=== PATIENT | male | born 1980 | race Caucasian/White ===

== ENCOUNTER 2020-08-12 19:09 | Emergency (ER) | payer BC ==
[2020-08-12] MEDS ORDERED: Sodium Chloride 0.9% 2.5 ML Syringe FLUSH PRN (19:29)
[2020-08-12] MEDS ORDERED: LORazepam 2 MG/ML SDV IVPUSH ONE (19:29)
[2020-08-12] MEDS ORDERED: Sodium Chloride 0.9% 1,000 ML IV ONE (19:29)
[2020-08-12] MEDS ORDERED: Sodium Chloride 0.9% 10 ML Syringe FLUSH PRN (19:29)
[2020-08-12 20:35] LABS: ACETAMINOPHEN 74.6 ug/mL; BLOOD UREA NITROGEN,BUN 9 mg/dL (7.0-18.0); CARBON DIOXIDE,CO2 26.1 mmol/L (21.0-32.0); CHLORIDE,CL 102 mmol/L (98-107); GLUCOSE RANDOM 114 mg/dL (74-106); POTASSIUM,K 3.2 mmol/L (3.5-5.1); SODIUM,NA 142 mmol/L (136-148)
--- NOTE | 2020-08-12 23:33 | EDM.PDOC ---
ED HPI GENERAL MEDICAL PROBLEM - General Chief Complaint: General Stated Complaint: NOT SLEEPING WELL, POSSIBLE MEDICATION REACTION Time Seen by Provider: 08/12/20 19:28 - History of Present Illness INITIAL COMMENTS - FREE TEXT/NARRATIVE: HISTORY AND PHYSICAL: History of present illness: Is a 40-year-old gentleman who presents ER today secondary to not feeling well and feeling jittery after taking a significant number of Tylenol PM tablets throughout the course of the evening to help him get some sleep. Patient reports that yesterday he was having a hard time sleeping so today he did not going to work. Patient reports that he went out to [employer] and bought Tylenol PM with 500 mg of acetaminophen and 25 mg of diphenhydramine. Patient reports that he went out and bought the tablets approximately 1 PM and took approxi mately 12 tablets between 1 PM and 6 PM. Patient reports that he took 8 of those tablets between 4 PM and 6 PM to help him get some sleep. This makes a total of 6 g of acetaminophen within a 5-hour period as well as 4 g of acetaminophen between 4 PM to 6 PM. Patient denies any recent fevers, shakes, chills, nausea, vomiting, diarrhea, dysuria, frequency, urgency, chest pain, shortness of breath. Patient denies any suicidal or homicidal ideation. Patient reports that he is been in an extremely good mood and has noted reason to harm himself. 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 Patient reports that he was taking extra doses because that is how much she used to take when he was younger. Patient adamantly denies any stressors in his life out of the ordinary other than being superintendent men[employer]. Patient reports that this is not unusual for him. Patient denies any relationship or social stressors, work stressors, or other stressors that have caused him to be depressed. Patient and we denies any SI or SI attempt. He reports that he did not go to work today because the was unable to fall asleep yesterday evening and was too tired so he stayed home. He reports that he got the Haldol with Benadryl to help him sleep tonight but was unable to and therefore took extra pills. Patient reports he was unaware of the possibility of overdose with acetaminophen causing liver disease and Benadryl causing cardiac arrhythmias. Review of systems: As per history of present illness and below otherwise all systems reviewed and negative. Past medical history: As per history of present illness and as reviewed below otherwise noncontributory. Surgical history: As per history of present illness and as reviewed below otherwise noncontributory. Social history: No reported history of drug or alcohol abuse. Family history: As per history of present illness and as reviewed below otherwise noncontributory. Physical exam: Constitutional: Patient is oriented to person, place, and time. Appears well- developed and well-nourished. No distress. HEENT: Moist mucous membranes Head: Normocephalic and atraumatic Eyes: Right eye exhibits no discharge. Left eye exhibits no discharge. No scleral icterus Neck: Normal range of motion. No tracheal deviation present. Cardiovascular: Normal rate and regular rhythm. Pulmonary: Effort normal, no respiratory distress. Abdominal: No distention Musculoskeletal: Normal range of motion Neurologic: Alert and oriented to person, place and time. Skin: [place], warm and dry. Psychiatric: Normal mood and affect. Behavior is normal. Judgment and thought content normal. Nursing note and vital signs have been reviewed Patient is alert awake and oriented x3. Patient is in good spirits, makes normal conversation and appropriate jokes. Patient does not appear to be depressed and does not have a flat affect. Assessment and plan: This is a 40-year-old gentleman who presents ER today secondary to not feeling well after taking 8 tablets of Tylenol PM between 6 4 PM and 6 PM this evening to help him sleep. Patient is clinically and hemodynamically stable. Patient's acetaminophen level at the remark is well below the [place] line for treatment. Patient had a repeat level at 4 hours after arrival and his a semen level at that point is also well below the treatment line. Patient reports that he initiated his doses of pills at approximately 1 PM to try to help him get some sleep this afternoon. Upon arrival the patient would have been 6 to 7 rosa rs out from initial ingestion. Patient's urine drug screen is positive for methadone. Patient adamantly denies usage of methadone or the possibility of accidental ingestion of methadone. Upon review of the literature, it has been shown that false positive tests to result with excessive dose of Benadryl. Patient's methadone is likely positive secondary to false positive result secondary to Benadryl use. At this time, the patient is not presenting with any signs or symptoms of be concerning for diphenhydramine/anticholinergic syndrome. Patient was monitored in ER for close to 4 hours. Patient at this time is stable for discharge to home with instructions to not utilize drugs inappropriately outside there label and that he may utilize Benadryl on its own to help him get some sleep at night. Reassessment at the time of disposition demonstrates that the patient is in no acute distress. The patient has remained stable throughout the entire ED visit and is without objective evidence for acute process requiring urgent intervention or hospitalization. The patient is stable for discharge, counseling is provided as documented above, discussed symptomatic treatment and specific conditions for return. I have spoken with the patient/caregiver and discussed todays findings, in addition to providing specific details for the plan of care. Questions are answered and there is agreement with the plan. Definitive disposition and diagnosis as appropriate pending reevaluation and review of above. R lower quadrant Pain Score (Numeric/FACES): 3 - Related Data Allergies Allergy/AdvReac Type Severity Reaction Status Date / Time No Known Allergies Allergy Verified 08/12/20 19:17 Home Meds: Home Meds Multivitamin [Multivitamins] 1 tab PO DAILY 08/12/20 [History] Vitamin B Complex 1 tab PO DAILY 08/12/20 [History] Past Medical History Cardiovascular History: Reports: Hypertension Other Gastrointestinal History: gastric bypass, abdominal hernia - Infectious Disease History Infectious Disease History: Reports: Chicken Pox Social & Family History - Family History Family Medical History: No Pertinent Family History - Caffeine Use Caffeine Use: Reports: None - Recreational Drug Use Recreational Drug Use: No ED ROS GENERAL - Review of Systems Review Of Systems: See Below ED EXAM, GENERAL - Physical Exam Exam: See Below #1 Interpretation EKG Interpretation Comments: EKG: As interpreted by ER physician: Emanuel: Nonspecific ST-T wave abnormalities Normal axis No evidence of ST elevation ND Normal sinus rhythm heart rate of 85 Course - Vital Signs Last Recorded V/S: Last Vital Signs Temp 97.2 F 08/12/20 23:41 Pulse 62 08/12/20 23:41 Resp 18 08/12/20 23:41 BP 139/98 H 08/12/20 23:41 Pulse Ox 97 08/12/20 23:41 - Orders/Labs/Meds Orders: Active Orders 24 hr Category Date Time Status Saline Lock Insert [OM.PC] Stat Oth 08/12/20 19:29 Ordered Labs: Laboratory Tests 08/12/20 08/12/20 08/12/20 Range/Units 19:42 19:42 19:42 WBC 7.35 (4.0-11.0) K/uL RBC 5.37 (4.50-5.90) M/uL Hgb 16.4 (13.0-17.0) g/dL Hct 47.6 (38.0-50.0) % MCV 88.6 (80.0-98.0) fL MCH 30.5 (27.0-32.0) pg MCHC 34.5 (31.0-37.0) g/dL RDW Std Deviation 42.2 (28.0-62.0) fl RDW Coeff of Jeovany 13 (11.0-15.0) % Plt Count 169 (150-400) K/uL MPV 10.00 (7.40-12.00) fL Neut % (Auto) 53.4 (48.0-80.0) % Lymph % (Auto) 36.6 (16.0-40.0) % [place] % (Auto) 8.4 (0.0-15.0) % Eos % (Auto) 1.5 (0.0-7.0) % Baso % (Auto) 0.1 (0.0-1.5) % Neut # (Auto) 3.9 (1.4-5.7) K/uL Lymph # (Auto) 2.7 H (0.6-2.4) K/uL [place] # (Auto) 0.6 (0.0-0.8) K/uL Eos # (Auto) 0.1 (0.0-0.7) K/uL Baso # (Auto) 0.0 (0.0-0.1) K/uL Nucleated RBC % 0.0 /100WBC Nucleated RBCs # 0 K/uL INR 1.05 Sodium 142 (136-148) mmol/L Potassium 3.2 L (3.5-5.1) mmol/L Chloride 102 (98-107) mmol/L Carbon Dioxide 26.1 (21.0-32.0) mmol/L BUN 9 (7.0-18.0) mg/dL Creatinine 0.9 (0.8-1.3) mg/dL Est Cr Clr Drug Dosing 120.84 mL/min Estimated GFR (MDRD) > 60.0 ml/min Glucose 114 H (74-106) mg/dL Calcium 9.1 (8.5-10.1) mg/dL Total Bilirubin 1.7 H (0.2-1.0) mg/dL AST 16 (15-37) IU/L ALT 20 (14-63) IU/L Alkaline Phosphatase 78 (46-116) U/L Troponin I < 0.050 (0.000-0.056) ng/mL Total Protein 7.4 (6.4-8.2) g/dL Albumin 4.4 (3.4-5.0) g/dL Globulin 3.0 (2.6-4.0) g/dL Albumin/Globulin Ratio 1.5 (0.9-1.6) TSH 3rd Generation 2.59 (0.36-3.74) uIU/mL Urine Color Urine Appearance Urine pH (5.0-8.0) Ur Specific [place] (1.001-1.035) Urine Protein (NEGATIVE) mg/dL Urine Glucose (UA) (NEGATIVE) mg/dL Urine Ketones (NEGATIVE) mg/dL Urine Occult Blood (NEGATIVE) Urine Nitrite (NEGATIVE) Urine Bilirubin (NEGATIVE) Urine Urobilinogen (<2.0) EU/dL Ur Leukocyte Esterase (NEGATIVE) Urine RBC (0-2/HPF) Urine WBC (0-5/HPF) Ur Epithelial Cells (NONE-FEW) Urine Bacteria (NEGATIVE) Salicylates <0.2 (0-20) mg/dL Urine Opiates Screen (NEGATIVE) Ur Oxycodone Screen (NEGATIVE) Urine Methadone Screen (NEGATIVE) Acetaminophen 74.6 ug/mL Ur Barbiturates Screen (NEGATIVE) Ur Phencyclidine Scrn (NEGATIVE) Ur Amphetamine Screen (NEGATIVE) U Methamphetamines Scrn (NEGATIVE) U Benzodiazepines Scrn (NEGATIVE) U Cocaine Metab Screen (NEGATIVE) U Marijuana (THC) Screen (NEGATIVE) 08/12/20 08/12/20 08/12/20 Range/Units 19:48 19:48 22:26 WBC (4.0-11.0) K/uL RBC (4.50-5.90) M/uL Hgb (13.0-17.0) g/dL Hct (38.0-50.0) % MCV (80.0-98.0) fL MCH (27.0-32.0) pg MCHC (31.0-37.0) g/dL RDW Std Deviation (28.0-62.0) fl RDW Coeff of Jeovany (11.0-15.0) % Plt Count (150-400) K/uL MPV (7.40-12.00) fL Neut % (Auto) (48.0-80.0) % Lymph % (Auto) (16.0-40.0) % [place] % (Auto) (0.0-15.0) % Eos % (Auto) (0.0-7.0) % Baso % (Auto) (0.0-1.5) % Neut # (Auto) (1.4-5.7) K/uL Lymph # (Auto) (0.6-2.4) K/uL [place] # (Auto) (0.0-0.8) K/uL Eos # (Auto) (0.0-0.7) K/uL Baso # (Auto) (0.0-0.1) K/uL Nucleated RBC % /100WBC Nucleated RBCs # K/uL INR Sodium (136-148) mmol/L Potassium (3.5-5.1) mmol/L Chloride (98-107) mmol/L Carbon Dioxide (21.0-32.0) mmol/L BUN (7.0-18.0) mg/dL Creatinine (0.8-1.3) mg/dL Est Cr Clr Drug Dosing mL/min Estimated GFR (MDRD) ml/min Glucose (74-106) mg/dL Calcium (8.5-10.1) mg/dL Total Bilirubin (0.2-1.0) mg/dL AST (15-37) IU/L ALT (14-63) IU/L Alkaline Phosphatase (46-116) U/L Troponin I (0.000-0.056) ng/mL Total Protein (6.4-8.2) g/dL Albumin (3.4-5.0) g/dL Globulin (2.6-4.0) g/dL Albumin/Globulin Ratio (0.9-1.6) TSH 3rd Generation (0.36-3.74) uIU/mL Urine Color YELLOW Urine Appearance CLEAR Urine pH 5.5 (5.0-8.0) Ur Specific [place] >= 1.030 (1.001-1.035) Urine Protein NEGATIVE (NEGATIVE) mg/dL Urine Glucose (UA) NEGATIVE (NEGATIVE) mg/dL Urine Ketones NEGATIVE (NEGATIVE) mg/dL Urine Occult Blood NEGATIVE (NEGATIVE) Urine Nitrite NEGATIVE (NEGATIVE) Urine Bilirubin NEGATIVE (NEGATIVE) Urine Urobilinogen 0.2 (<2.0) EU/dL Ur Leukocyte Esterase TRACE H (NEGATIVE) Urine RBC 0-3 (0-2/HPF) Urine WBC 1-4 (0-5/HPF) Ur Epithelial Cells RARE (NONE-FEW) Urine Bacteria FEW (NEGATIVE) Salicylates (0-20) mg/dL Urine Opiates Screen NEGATIVE (NEGATIVE) Ur Oxycodone Screen NEGATIVE (NEGATIVE) Urine Methadone Screen POSITIVE (NEGATIVE) Acetaminophen 34.3 ug/mL Ur Barbiturates Screen NEGATIVE (NEGATIVE) Ur Phencyclidine Scrn NEGATIVE (NEGATIVE) Ur Amphetamine Screen NEGATIVE (NEGATIVE) U Methamphetamines Scrn NEGATIVE (NEGATIVE) U Benzodiazepines Scrn NEGATIVE (NEGATIVE) U Cocaine Metab Screen NEGATIVE (NEGATIVE) U Marijuana (THC) Screen NEGATIVE (NEGATIVE) Meds: Medications Discontinued Medications Generic Name Dose Route Start Last Admin Trade Name Freq PRN Reason Stop Dose Admin Sodium Chloride 1,000 mls @ 999 mls/hr 08/12/20 19:29 08/12/20 19:47 Normal Saline IV 08/12/20 20:29 999 mls/hr .Bolus ONE Administration Lorazepam 1 mg 08/12/20 19:29 08/12/20 19:49 Ativan IVPUSH 08/12/20 19:30 1 mg ONETIME ONE Administration Sodium Chloride 10 ml 08/12/20 19:29 08/12/20 19:51 Saline Flush FLUSH 10 ml ASDIRECTED PRN Administration Keep Vein Open Sodium Chloride 2.5 ml 08/12/20 19:29 08/12/20 19:50 Saline Flush FLUSH 2.5 ml ASDIRECTED PRN Administration Keep Vein Open Departure - Departure Time of Disposition: 23:33 Disposition: Home, Self-Care 01 Condition: Good Clinical Impression: Accidental acetaminophen overdose, Accidental diphenhydramine overdose, Insomnia - Discharge Information Instructions: Acetaminophen Overdose, Accidental Drug Poisoning, Adult, Insomnia Referrals: PCP,None [Primary Care Provider] - Forms: ED Department Discharge Additional Instructions: You were seen and evaluated in the ER today secondary to a nontoxic overdose of Tylenol PM. Please do not take medications outside the indicated label and dosage instructions. Your drug screen today was positive for methadone. This is most likely a false positive test result from excessive use of diphenhydramine. Please return to the ER if you develop any signs or symptoms that would concern you at all regarding depression. The following information is given to patients seen in the emergency department who are being discharged to home. This information is to outline your options for follow-up care. We provide all patients seen in our emergency department with a follow-up referral. The need for follow-up, as well as the timing and circumstances, are variable depending upon the specifics of your emergency department visit. If you don't have a primary care physician on staff, we will provide you with a referral. We always advise you to contact your personal physician following an emergency department visit to inform them of the circumstance of the visit and for follow-up with them and/or the need for any referrals to a consulting specialist. The emergency department will also refer you to a specialist when appropriate. This referral assures that you have the opportunity for follow-up care with a specialist. All of these measure are taken in an effort to provide you with optimal care, which includes your follow-up. Under all circumstances we always encourage you to contact your private physician who remains a resource for coordinating your care. When calling for follow-up care, please make the office aware that this follow-up is from your recent emergency room visit. If for any reason you are refused follow-up, please contact the [facility] Emergency Department at and asked to speak to the emergency department charge nurse. [facility] - Primary Care [address] [place] [id number] [facility] [address] [place] [id number] Sepsis Event Note (ED) - Evaluation Sepsis Screening Result: No Definite Risk - Focused Exam Vital Signs: Vital Signs Temp Pulse Resp BP Pulse Ox 08/12/20 23:41 97.2 F 62 18 139/98 H 97 08/12/20 21:25 97 F 74 18 131/94 H 97 08/12/20 19:47 104 H 158/98 H 08/12/20 19:20 98.4 F 95 20 178/120 H 97 - My Orders Last 24 Hours: My Active Orders 08/12/20 19:29 Saline Lock Insert [OM.PC] Stat - Assessment/Plan Last 24 Hours: My Active Orders 08/12/20 19:29 Saline Lock Insert [OM.PC] Stat
== END 2020-08-12 23:42 | disposition home or self-care (01) ==
LOC: MW.ED 19:09
DX: T39.1X1A Poisoning by 4-Aminophenol derivatives, accidental (unintentional), initial encounter (principal); T45.0X1A Poisoning by antiallergic and antiemetic drugs, accidental (unintentional), initial encounter; G47.00 Insomnia, unspecified; I10 Essential (primary) hypertension; Z79.899 Other long term (current) drug therapy
CPT/HCPCS: 36415; 80053; 80305; 80307; 81001; 84443; 84484; 85025; 85610; 93005; 96374; 99284; J2060; J7030; 93010; 99283